=== PATIENT | female | born 1995 | race Caucasian/White ===

== ENCOUNTER 2019-05-16 16:58 | Emergency (ER) | payer OTHER ==
[~2019-05-16] VITALS: Ht 167.6 cm; Wt 90.7 kg
[~2019-05-16 16:58] MED LIST: AUGMENTIN 875875 MG PO; BIRTH CONTROL; CERTAGEN SOL1 BO1 NG; CHILDREN'S ADVI50 MG PO; CIPROFLOXACIN500 M1 PO; CLEOCIN HCL300 MG PO; DOXYCYCLINE 10100 MG PO; MACROBID 100 M100 M1 PO; NAPROSYN500 MG PO; NOHOMEMEDICATIONS; NORCO 5-325 TA1 EACH PO; PRENATAL; TRAMADOL 50 MG50 MG PO; ULTRAM 50MG TAB50 MG PO; ZPAK PO
[2019-05-16] MEDS ORDERED: DEPO-PROVE150 MG/11 IM (17:18)
[2019-05-16] MEDS ORDERED: ZPAK PO (17:38)
[2019-05-16] MEDS ORDERED: AFRIN15 ML NS (17:38)
[2019-05-16] MEDS ORDERED: MEDROLDOSEPACK PO (17:38)
[2019-05-16 18:00] VITALS: BP 127/85
[2019-05-16 18:01] LABS: INFLUENZA A ANTIGEN Negative (Negative); INFLUENZA B ANTIGEN Negative (Negative)
== END 2019-05-16 18:01 | disposition home or self-care (01) ==
LOC: M.ERS 16:58
PROVIDERS: Physician Assistant
DX: J20.9 Acute bronchitis, unspecified (principal); Z90.49 Acquired absence of other specified parts of digestive tract; Z88.2 Allergy status to sulfonamides; Z88.0 Allergy status to penicillin

== ENCOUNTER 2020-02-13 11:18 | Emergency (ER) | payer OTHER, MEDICAID ==
[~2020-02-13] VITALS: Ht 167.6 cm; Wt 95.3 kg
[~2020-02-13 11:18] MED LIST changes: +AFRIN15 ML NS; +DEPO-PROVE150 MG/11 IM; +MEDROLDOSEPACK PO
[2020-02-13] MEDS ORDERED: SYNTHROID75 MCG PO (11:28)
[2020-02-13] MEDS ORDERED: MUPIROCIN1 GM TOP (12:39)
[2020-02-13] MEDS ORDERED: DOXYCYCLINE 10100 MG PO (12:39)
[2020-02-13 13:02] VITALS: BP 121/73
== END 2020-02-13 13:02 | disposition home or self-care (01) ==
LOC: M.ERS 11:18
DX: L02.416 Cutaneous abscess of left lower limb (principal); L01.00 Impetigo, unspecified; Z88.0 Allergy status to penicillin; Z88.2 Allergy status to sulfonamides; Z79.899 Other long term (current) drug therapy; Z90.49 Acquired absence of other specified parts of digestive tract

== ENCOUNTER 2020-09-30 17:00 | Emergency (ER) | payer OTHER, MEDICAID ==
[~2020-09-30] VITALS: Ht 167.6 cm; Wt 95.3 kg
[~2020-09-30 17:00] MED LIST changes: +MUPIROCIN1 GM TOP; +SYNTHROID75 MCG PO
[2020-09-30] MEDS ORDERED: LEVO-T25 MCG PO (17:20)
[2020-09-30 17:24] LABS: URINE BILIRUBIN NEGATIVE (Negative); URINE BLOOD NEGATIVE (Negative); URINE CLARITY CLEAR; URINE COLOR YELLOW; URINE GLUCOSE-RANDOM NEGATIVE (Negative); URINE KETONES NEGATIVE (Negative); URINE LEUKOCYTES-REFLEX 1+ (Negative); URINE NITRITE-REFLEX NEGATIVE (Negative); URINE PROTEIN TRACE (Negative); URINE SPECIFIC GRAVITY 1.025 (1.005-1.030)
[2020-09-30 17:30] LABS: MUCUS 0-3 Light strn/LPF (None Seen); SQUAMOUS >10 Many /LPF (0-3)
[2020-09-30 17:35] LABS: CASTS None Seen /LPF (None Seen); CRYSTALS None Seen /LPF (None Seen)
[2020-09-30 17:36] LABS: URINE RBC 0-2 Rare /HPF (0-2); URINE WBC-REFLEX 6-15 Few /HPF (0-5)
[2020-09-30] MEDS ORDERED: FLEXERIL PO (19:28)
[2020-09-30] MEDS ORDERED: VOLTAREN GEL 1100 G1 TOP (19:28)
[2020-09-30] MEDS ORDERED: IBU600 MG PO (19:28)
[2020-09-30 20:03] VITALS: BP 120/76
== END 2020-09-30 20:03 | disposition home or self-care (01) ==
LOC: M.ERS 17:00
PROVIDERS: Physician Assistant
DX: S46.812A Strain of other muscles, fascia and tendons at shoulder and upper arm level, left arm, initial encounter (principal); S80.02XA Contusion of left knee, initial encounter; S20.212A Contusion of left front wall of thorax, initial encounter; E03.9 Hypothyroidism, unspecified; Z88.0 Allergy status to penicillin; Z88.2 Allergy status to sulfonamides; Z79.899 Other long term (current) drug therapy; Z90.49 Acquired absence of other specified parts of digestive tract; V89.2XXA Person injured in unspecified motor-vehicle accident, traffic, initial encounter; Y93.89 Activity, other specified; Y92.89 Other specified places as the place of occurrence of the external cause; Y99.8 Other external cause status